=== PATIENT | female | born 1975 | race Caucasian/White ===

== ENCOUNTER 2017-12-23 19:33 | Emergency (ER) | payer MEDICAID ==
[2017-12-23] MEDS ORDERED: DUONEB *Not for PRN Use IH ONE ×2 (19:56→20:59)
[2017-12-23 20:13] VITALS: BP 191/85
[2017-12-23 20:47] LABS: Basophils # (Auto) 0.1 K/mm3 (0.0-0.1); Basophils % (Auto) 0.4 % (0.0-1.8); Eosinophils # (Auto) 0.2 K/mm3 (0.0-0.4); Eosinophils % (Auto) 1.4 % (0.0-4.3); Hematocrit 43.2 % (30.3-42.9); Hemoglobin 14.5 gm/dl (10.1-14.3); Lymphocytes # (Auto) 1.9 K/mm3 (1.2-5.4); Lymphocytes % (Auto) 14.3 % (13.4-35.0); Mean Corpuscular HGB Conc 33 % (30-34); Mean Corpuscular Hemoglobin 29 pg (28-32); Mean Corpuscular Volume 88 fl (79-97); Monocytes # (Auto) 0.8 K/mm3 (0.0-0.8); Monocytes % (Auto) 5.8 % (0.0-7.3); Platelet Count 250 K/mm3 (140-440); Red Blood Count 4.92 M/mm3 (3.65-5.03); Red Cell Distribution Width 13.6 % (13.2-15.2)
[2017-12-23 21:31] LABS: BUN/Creatinine Ratio 8; Blood Urea Nitrogen 5 mg/dL (7-17); Calcium 8.9 mg/dL (8.4-10.2); Hemolysis Index 3
--- NOTE | 2017-12-23 23:17 | XRay Report ---
FINAL REPORT EXAM: XR CHEST ROUTINE 2V HISTORY: Shortness of breath TECHNIQUE: Two views of the chest Comparison: None FINDINGS: Normal heart size. Lungs are clear and well expanded without focal infiltrate or consolidation. No effusion. Mild degenerative spondylitic change dorsal vertebral bodies. IMPRESSION: No acute cardiopulmonary disease.
[2017-12-23] MEDS ORDERED: TYLENOL PO ONE (23:23)
== END 2017-12-24 01:10 | disposition left against medical advice (07) ==
LOC: ED 19:33
DX: J11.1 Influenza due to unidentified influenza virus with other respiratory manifestations (principal); Z53.21 Procedure and treatment not carried out due to patient leaving prior to being seen by health care provider
CPT/HCPCS: 36415; 71046; 80048; 83880; 84484; 84703; 85025; 93005; 93010

== ENCOUNTER 2021-08-07 00:19 | Emergency (ER) | payer MEDICAID ==
[2021-08-07] MEDS ORDERED: SODIUM CHLORIDE 0.9% 1000 ML 1,000 ML IV ONE (00:35)
[2021-08-07] MEDS ORDERED: LIDOCAINE 1%/EPINEPHRINE 1:100,000 VIAL (20 ML) INFILTRATI ONE (00:45)
[2021-08-07] MEDS ORDERED: LIDOCAINE 2%/EPINEPHRINE 1:100,000 VIAL (20 ML) INFILTRATI ONE (00:56)
[2021-08-07 01:12] LABS: Basophils # (Auto) 0.1 K/mm3 (0.0-0.1); Basophils % (Auto) 0.6 % (0.0-1.8); Eosinophils # (Auto) 0.3 K/mm3 (0.0-0.4); Eosinophils % (Auto) 2.1 % (0.0-4.3); Hematocrit 42.2 % (30.3-42.9); Hemoglobin 14.1 gm/dl (10.1-14.3); Lymphocytes # (Auto) 3.5 K/mm3 (1.2-5.4); Mean Corpuscular HGB Conc 34 % (30-34); Mean Corpuscular Volume 88 fl (79-97); Monocytes % (Auto) 7.4 % (0.0-7.3); Platelet Count 382 K/mm3 (140-440); Red Blood Count 4.78 M/mm3 (3.65-5.03)
--- NOTE | 2021-08-07 01:19 | Emergency Department Report ---
ED ENT HPI - General Chief complaint: Nosebleed Stated complaint: spitting blood Time Seen by Provider: 08/07/21 00:30 Source: patient, EMS Mode of arrival: Stretcher Limitations: No Limitations - History of Present Illness Initial comments: Chief complaint: Bleeding from the mouth HPI: This is a 46-year-old female with history of hypertension, diabetes mellitus, congestive heart failure who is 4 days status post tonsillectomy by Dr. Herring at [facility]. While sitting on the couch watching TV 1 hour prior to arrival she had a sudden onset of bleeding from the mouth. Throat felt scratchy. She called EMS to bring her to the closest hospital. She was in good health prior to the onset of bleeding. She denies headache, chest pain or lightheadedness. She is currently ambulatory. EMS report hypertensive. MD complaint: other (Bleeding from throat after tonsillectomy) -: Sudden, hour(s) (1 hour prior to arrival) Severity: moderate Consistency: constant Improves with: none Worsens with: none Context-Epistaxis: recent surgery/procedure, other (No use of anticoagulants or aspirin) - Related Data Allergies Allergy/AdvReac Type Severity Reaction Status Date / Time shellfish derived Allergy Unknown Verified 08/07/21 00:26 ED Dental HPI - General Chief complaint: Nosebleed Stated complaint: spitting blood Time Seen by Provider: 08/07/21 00:30 Source: EMS Mode of arrival: Stretcher Limitations: No Limitations - Related Data Allergies Allergy/AdvReac Type Severity Reaction Status Date / Time shellfish derived Allergy Unknown Verified 08/07/21 00:26 ED Review of Systems ROS: Stated complaint: spitting blood Other details as noted in HPI Comment: All other systems reviewed and negative Constitutional: denies: chills, fever, malaise Respiratory: denies: cough, shortness of breath Cardiovascular: denies: chest pain Gastrointestinal: denies: abdominal pain, nausea, vomiting ED Past Medical Hx - Past Medical History Previous Medical History?: Yes Hx Hypertension: Yes Hx Congestive Heart Failure: Yes Hx Diabetes: Yes Hx Asthma: Yes - Surgical History Past Surgical History?: Yes Additional Surgical History: Tubal Ligation, NOSE SURGERY, TONSILLECTOMY - Social History Smoking Status: Current Every Day Smoker Substance Use Type: None ED Physical Exam - General Limitations: No Limitations General appearance: alert, in no apparent distress, other (Spitting blood in emesis bag) - Head Head exam: Present: atraumatic, normocephalic - Eye Eye exam: Present: normal appearance - ENT ENT exam: Present: mucous membranes moist - Neck Neck exam: Present: normal inspection - Respiratory Respiratory exam: Present: normal lung sounds bilaterally. Absent: respiratory distress - Cardiovascular Cardiovascular Exam: Present: regular rate, normal rhythm. Absent: systolic murmur, diastolic murmur, rubs, gallop - GI/Abdominal GI/Abdominal exam: Present: soft, normal bowel sounds. Absent: distended, tenderness, guarding, rebound - Extremities Exam Extremities exam: Present: normal inspection - Neurological Exam Neurological exam: Present: alert, oriented X3 - Psychiatric Psychiatric exam: Present: normal affect, normal mood - Skin Skin exam: Present: warm, dry, intact, normal color. Absent: rash ED Course Vital Signs 08/07/21 08/07/21 08/07/21 00:21 01:13 01:15 Temperature 98.3 F 98.1 F Pulse Rate 101 H 96 H Respiratory 18 15 15 Rate Blood Pressure 214/88 181/86 [Left] O2 Sat by Pulse 99 98 98 Oximetry - Reevaluation(s) Reevaluation #1: 08/07/21 01:19 Spoke with THUY Harrington for Dr. Herring Reevaluation #2: 08/07/21 01:30 [address] directly [address] Herring. He requested the blood is transported with the patient. He recommended crystalloid resuscitation which was already initiated. I gave plan to nurse. Dr. Herring informed me that he will call the emergency department suspect patient's arrival. ED Medical Decision Making - Lab Data Result diagrams: 08/07/21 00:49 08/07/21 00:49 - Medical Decision Making Post tonsillectomy bleeding: I obtained history from EMS at the bedside. I prepared suction. I used Jason forceps with gauze soaked with lidocaine and epinephrine to apply pressure which only transiently slowed down the bleeding. I immediately spoke with THUY harrington for Dr. Herring at 0119 I asked secretary office clerk to call [facility] for EMS transport. EMS transport was unavailable. [facility] agreed to transport patient. They arrived at 0144. I asked nurse to obtain O neg blood to transport with patient. Our ED Form Setter Helper spoke with charge nurse and litigation secretary at [facility]. They confirm that they will accept the patient upon instruction by Dr. Herring. ER physician will not be involved. Dr. Herring will see the patient directly in the emergency department Hemoglobin 14. Critical Care Time: Yes Critical care time in (mins) excluding proc time.: 40 Critical care attestation.: If time is entered above; I have spent that time in minutes in the direct care of this critically ill patient, excluding procedure time. 40 minutes of critical care time excluding procedures were used in the care of the patient. I came immediately to the bedside upon patient's arrival. I obtained history from EMS at the bedside. I discussed treatment plan with the nursing team members. I reviewed electronic record. I was concerned for active hemorrhage and airway compromise. Patient required multiple interventions and reassessments. ED Disposition Clinical Impression: Post-tonsillectomy hemorrhage Disposition: 02 [facility]ORT TERM [facility] Is pt being admited?: No Does the pt Need Aspirin: No Condition: Stable
[2021-08-07 01:25] LABS: BUN/Creatinine Ratio 21; Blood Urea Nitrogen 19 mg/dL (7-17); Calcium 9.2 mg/dL (8.4-10.2); Hemolysis Index 5
[2021-08-07] MEDS ORDERED: SODIUM CHLORIDE 0.9% 500 ML 500 ML IV ONE (01:27)
[2021-08-07 02:05] VITALS: BP 196/85
== END 2021-08-07 02:08 | disposition short-term general hospital (02) ==
LOC: ED 00:19
DX: K91.841 Postprocedural hemorrhage of a digestive system organ or structure following other procedure (principal); I11.0 Hypertensive heart disease with heart failure; I50.9 Heart failure, unspecified; J45.909 Unspecified asthma, uncomplicated; E11.9 Type 2 diabetes mellitus without complications
CPT/HCPCS: 36415; 36430; 42960; 80048; 85025; 86850; 86900; 86901; 86920; 96360; 99291; J3490; J7030; P9016; Q0162